=== PATIENT | male | born 1955 | race Caucasian/White ===

== ENCOUNTER 2018-11-03 09:25 | Emergency (ER) | payer OTHER, SELFPAY ==
[2018-11-03 09:25] VITALS: BP 155/73; PULSE 69; RESP 16; TEMP 36.3; O2SAT 99; BMI 24.3
[2018-11-03 10:00] VITALS: BP 143/83; PULSE 63; RESP 17; O2SAT 98
--- NOTE | 2018-11-03 10:01 | ED_ITS ---
HPI - Dizziness General Chief Complaint: Dizziness Stated Complaint: has been dizzy all morning Time Seen by Provider: 11/03/18 09:29 Source: patient Mode of arrival: ambulatory Limitations: no limitations History of Present Illness HPI Narrative: Patient is a 63-year-old male who presents with dizziness. He said he woke up at 5:15 a.m. this morning he felt slightly dizzy he was able to drive himself from billing him to and [place] for an appointment. However he continued to not feel well. He feels a little bit nauseated. No vomiting no focal deficits. He does have a slight headache. No chest pain or heart palpitations. MD complaint: dizziness and lightheadedness Onset (ago): hour(s) Timing: sudden onset Description: sense of movement and lightheadedness Severity: mild Relieving factors: remaining still Exacerbating factors: movement Associated symptoms: denies other symptoms Related Data Previous Rx's Medication Instructions Recorded meclizine 25 mg PO BID-TID PRN #10 tab 11/03/18 ondansetron 4 mg PO Q6-8H PRN #10 tab 11/03/18 Allergies Allergy/AdvReac Type Severity Reaction Status Date / Time oxycodone [OXYCODONE] Allergy Intermediate RASH Verified 11/03/18 10:10 Review of Systems Review of Systems All systems reviewed & are unremarkable except as noted in HPI and below Constitutional Denies chills, Denies fever(s), Denies lethargy and Denies weakness Eyes Denies change in vision, Denies eye discharge, Denies irritation and Denies loss of vision Cardiovascular Denies chest pain, Denies irregular heart rhythm, Denies lightheadedness, Denies palpitations, Denies dyspnea, Denies dyspnea on exertion and Denies orthopnea Respiratory Denies cough, Denies dyspnea, Denies dyspnea on exertion and Denies wheezing Gastrointestinal Gastrointestinal: Denies abdominal pain, Denies change in bowel habits, Denies diarrhea, Reports nausea and Denies vomiting Genitourinary Denies hematuria, Denies flank pain, Denies urinary incontinence and Denies urinary urgency Integumentary/Breasts Denies pruritus, Denies erythema, Denies rash and Denies wounds Neurologic Denies loss of vision and Denies weakness Endocrine Denies palpitations Allergic/Immunologic Denies wheezing PFSH Medical History Ankylosing spondylitis (Chronic) Neck pain (Chronic) Raynauds syndrome (Chronic) Social History Smoking Status: Never smoker Exam Initial Vital Signs Initial Vital Signs: Vital Signs Temperature 97.4 F L 11/03/18 09:25 Pulse Rate 69 11/03/18 09:25 Respiratory Rate 16 11/03/18 09:25 Blood Pressure 155/73 H 11/03/18 09:25 Pulse Oximetry 99 11/03/18 09:25 GENERAL: Alert well-appearing male no acute distress . HEENT: Head atraumatic,EOMI, pupils reactive, face symmetric, moist mucous membranes CARDIOVASCULAR: Regular rate and rhythm without murmurs, rubs or gallops. RESPIRATORY: Breath sounds equal bilaterally, no wheezes rales or rhonchi. ABDOMEN: Soft, nontender. Normoactive bowel sounds all 4 quadrants. No guarding or rebound. EXTREMITIES: Normal range of motion, no clubbing or edema. Neurovascularly intact NEUROLOGICAL: Alert and oriented x4.Normal gait and speech. Cranial nerves II through XII grossly intact. Good [id number], good [id number]-[id number], strength equal bilaterally, no dysarthria or aphasia, sensation in tact to soft touch bilaterally, no visual changes, no facial droop SKIN: Warm, dry, no laceration, no petechiae, no rashes or lesions. Scores NIH Stroke Scale Level of Conciousness: Alert, keenly responsive Ask month/age: Answers both questions correctly. Open/close eyes, close hand: Performs both tasks correctly Best gaze horizontal: Normal Visual shrestha: No visual loss Facial palsy: Normal symetrical movement Left arm drift: No drift for full 10 sec Right arm drift: No drift for full 10 sec Left leg drift: No drift for full 10 sec Right leg drift: No drift for full 10 sec Limb ataxia: Absent Sensory on face/arms/legs: Normal, no sensory loss Best language: No aphasia, normal Dysarthria: Normal Extinction or inattention: No abnormality Total NIH Stroke scale score: 0 Course Orders Ordered: ED Orders 11/03/18 09:39 EKG-12 Lead Routine 11/03/18 09:45 Basic Metabolic Panel Stat Complete Blood Count AUTO DIFF Stat Troponin I Stat Discontinued Medications Sodium Chloride (Normal Saline 0.9%) 1,000 mls @ 1,000 mls/hr IV CONT LOGAN Last Infusion: 11/03/18 13:10 Dose: 0 mls/hr Admin: 11/03/18 10:10 Dose: 1,000 mls/hr Ondansetron HCl (Zofran) 4 mg IV NOW ONE Stop: 11/03/18 09:57 Last Admin: 11/03/18 10:11 Dose: 4 mg Vital Signs - 8 hr 11/03/18 09:25 11/03/18 10:00 11/03/18 11:00 Temperature 97.4 F L Pulse Rate 69 63 60 Respiratory Rate 16 17 11 L Blood Pressure 155/73 H Blood Pressure [Left Arm] 143/83 H 135/79 Pulse Oximetry 99 98 100 11/03/18 12:06 Temperature Pulse Rate 58 L Respiratory Rate 13 Blood Pressure Blood Pressure [Left Arm] 131/75 Pulse Oximetry 100 MDM - Dizziness Lab Data Attestation: I reviewed the patient's lab results. Result diagrams: 11/03/18 09:45 11/03/18 09:45 Lab Results 11/03/18 11/03/18 Range/Units 09:45 09:45 WBC 11.2 H (4.5-11.0) X10^3/uL RBC 4.82 (4.5-5.9) X10^6/uL Hgb 14.6 (13.5-17.5) g/dL Hct 44.7 (41-53) % MCV 92.7 (80-100) fL MCH 30.3 (26-34) PG MCHC 32.6 (30-36) % RDW 14.8 (11.6-14.8) % Plt Count 257 (150-400) X10^3/uL Neut % (Auto) 71.4 (50-75) % Lymph % (Auto) 19.6 L (25-40) % [place] % (Auto) 7.3 (3-14) % Eos % (Auto) 0.8 L (2-4) % Baso % (Auto) 0.9 (0-2) % Neut # (Auto) 8000 H (6964-5200) /uL Sodium 143 (137-145) mmol/L Potassium 4.0 (3.4-5.1) mmol/L Chloride 103 (98-107) mmol/L Carbon Dioxide 28 (22-32) mmol/L BUN 15 (9-20) mg/dL Creatinine 0.80 (0.66-1.25) mg/dL Estimated GFR > 60.0 (>60) mL/min BUN/Creatinine Ratio 18.8 (6-22) Glucose 99 (80-110) mg/dL Calcium 9.2 (8.4-10.2) mg/dL Troponin I < 0.012 (0.01-0.034) ng/mL Urine Dip Bedside Urine Glucose Negative Bedside Urine Bilirubin - Negative Bedside Urine Ketone - Negative Urine Specific [place] 1.015 Bedside Urine Occult Blood - Negative Bedside Urine pH 7.0 Bedside Urine Protein - Negative Bedside Urine Urobilinogen - Negative Bedside Urine Nitrite - Negative Bedside Urine Leukocytes - Negative Esterase ECG Data Attestation: I personally reviewed and interpreted this ECG as follows: Prior ECG tracings: not available for review Interpretation: Normal sinus rhythm rate I have no ST changes no T-wave inversions appear 178 MDM Narrative Medical decision making narrative: Patient was offered meclizine however he does not have a ride yet at this time would like to wait for IV fluids. Ambulated initially still did not feel quite right. He was re-evaluated he said he is mostly better he is not persistently vomiting he is able ambulate to the restroom without difficulty. At this time I do not believe there is stroke. Patient appears comfortable nontoxic he is still able to communicate. At this time he does not want meclizine but is having have a prescription. I discussed all findings with the patient , Education has been performed regarding treatment plan, diagnosis, warning signs and symptoms and all concerns have been addressed. Verbally agree with and understood all of the above. Discharge Plan Departure Patient Disposition: Home Clinical Impression: Benign paroxysmal positional vertigo Discharge Date/Time: 11/03/18 13:12 Interventions: ED Discharge Assessment Last Done: 11/03/18 13:05 Instructions: Benign Paroxysmal Positional Vertigo Activity Restrictions/Additional Instructions: *You have been diagnosed with benign paroxysmal positional vertigo *What to do: This should improve. But may take some time. Get up slowly *Continue to take medications as directed Meclizine 1 tablet 3 times a day if needed for dizziness Zofran 4 mg every 6-8 hours if needed for nausea or vomiting *Follow up with your primary care provider in 2-3 days *Return to ER if you should have persistent worsening dizziness, persistent vomiting, weakness or any new, worsening or concerning symptoms Prescriptions: New meclizine 25 mg tablet 25 mg PO BID-TID PRN (Reason: dizziness) Qty: 10 RF: 0 ondansetron 4 mg tablet,disintegrating 4 mg PO Q6-8H PRN (Reason: nausea and vomiting) Qty: 10 RF: 0
[2018-11-03] MEDS: SODIUM CHLORIDE 0.9% 1,000 ML 1000 ML IV (10:10)
[2018-11-03] MEDS: ONDANSETRON 4 MG/2 ML INJ IV (10:11)
--- NOTE | 2018-11-03 10:11 | PC.NURSE ---
pt deferred meclizine at this time, due to ride home (pt lives in [place]) dr hopper made aware.
--- NOTE | 2018-11-03 10:15 | PC.NURSE ---
pt deferred zofran at this time, states, not nauseas at this time. urine sample requested, urinal provided.
[2018-11-03 10:17] LABS: Add Manual Diff / Slide Review NO; BUN Creatinine Ratio 18.8 (6-22); Basophils Percent Auto 0.9 % (0-2); Blood Urea Nitrogen 15 mg/dL (9-20); Calcium 9.2 mg/dL (8.4-10.2); Carbon Dioxide 28 mmol/L (22-32); Chloride 103 mmol/L (98-107); Eosinophils Percent Auto 0.8 % (2-4); Estimated Glomerular Filt Rate > 60.0 mL/min (>60); Glucose 99 mg/dL (80-110); HEMOLYSIS 19 (0-50); Hematocrit 44.7 % (41-53); Hemoglobin 14.6 g/dL (13.5-17.5); Lymphocytes Percent Auto 19.6 % (25-40); Mean Corpuscular HGB Conc 32.6 % (30-36); Mean Corpuscular Hemoglobin 30.3 PG (26-34); Mean Corpuscular Volume 92.7 fL (80-100); Monocytes Percent Auto 7.3 % (3-14); Neutrophils Absolute Auto 8000 /uL (3000-5900); Neutrophils Percent Auto 71.4 % (50-75); Platelet Count 257 X10^3/uL (150-400); Red Blood Cell Count 4.82 X10^6/uL (4.5-5.9); Red Cell Distribution Width 14.8 % (11.6-14.8); Sodium 143 mmol/L (137-145); White Blood Cell Count 11.2 X10^3/uL (4.5-11.0)
[2018-11-03 10:29] LABS: Troponin I < 0.012 ng/mL (0.01-0.034)
[2018-11-03 10:30] VITALS: BP 138/78; PULSE 61; RESP 16; O2SAT 98
[2018-11-03 11:00] VITALS: BP 135/79; PULSE 60; RESP 11; O2SAT 100
--- NOTE | 2018-11-03 11:32 | PC.NURSE ---
pt able to get self out of bed and stand, reports, feeling lightheaded and with dizziness, same sxs but not as bad. denies chest pain, shortness of breath,nausea. skin warm dry pink, dr hopper made aware. right IV site , leaking changed of dressing, flushed without difficulty. continue infusing iv fluids.
--- NOTE | 2018-11-03 11:33 | PC.NURSE ---
pt able to get out of bed and stand, developed lightheadedness and dizziness, able to ambulate without difficulty, denies chest pain or shortness of breath. skin warm dry pink dr hopper made aware. spouse will be calling back, if she can give pt ride home. dr hopper made aware. pt inquiring abaut maneuver, dr hopper made aware , no new orders at this time. iv site leaking, checked and redressed, flush without difficulty, continue infusing ns.
[2018-11-03 12:06] VITALS: BP 131/75; PULSE 58; RESP 13; O2SAT 100
--- NOTE | 2018-11-03 12:24 | PC.NURSE ---
pt states, is on the way, pt continue to deferred meclizine at this time, pt agreed to have rx to take later if he decided.
== END 2018-11-03 13:12 | disposition home or self-care (01) ==
PROVIDERS: Emergency Provider Emergency Medicine
DX: H81.10 Benign paroxysmal vertigo, unspecified ear (principal)
CPT/HCPCS: 36591; 80048; 81003; 84484; 85025; 93005; 93010; 96361; 96374; 99283; 99284; J2405

== ENCOUNTER 2018-11-08 16:00 | Outpatient (RCR) | payer OTHER, SELFPAY ==
--- NOTE | 2018-09-02 08:56 | PT.OIE ---
Current Diagnoses Other specified postprocedural states (09/01/18) Provider Visit Care Team Role Provider Type Faheem Dotson MD Attending Provider Non-Staff Specialty: Orthopedics Address: [facility] [address] [address], [place], [address] Email: Physical Therapy Initial Evaluation PT-OP-A Visit Information Start: 09/02/18 07:25 Freq: Status: Active Protocol: Document 09/01/18 18:29 ML (Rec: 09/02/18 08:03 ML [id number]) Out-Patient Physical Therapy Visit Information Visit Information Visit Type Initial Evaluation Visit Start Time 16:00 Visit Stop Time 16:53 Total Visit Minutes 53 Visit Number 1 Number of VISCOSE DEPARTMENT WORKER Visits 0 Evaluation Information Evaluation Date 09/01/18 PT-OP-B Current Condition Start: 09/02/18 07:25 Freq: Status: Active Protocol: Document 09/01/18 18:29 ML (Rec: 09/02/18 08:03 ML [id number]) Current Condition History of Current Condition Onset Date 04/01/18 Current Complaints Dec ROM and strength status post rotator cuff repair History of Current Condition Pt has been recoverying well from his rotator cuff repair but wants to continue to have PT 2x/week in order to regain full ROM and strength. Pt has been going to PT in [place] 2x/week since the surgery 4 months ago, but is now pursuing PT here once a week as he is only able to make his appointment in [place] once a week. 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 Pt also presents with ankylosing spondylitis and states that doctors mentioned that it could have been related to his tear. Pt reports of having no difficulty of work activities, general ADLs, or recreational activities. He states that because of his ROM he is unable to wash his back and would like to improve ROM for general function. Pt says he has done some kayaking and would like to continue to do so. Pt stated no other particular activities or difficulties that finds limitations in because of his current condition of his shoulder. Prior Treatments and Tests PT in [place] Future Testing and Treatments Planned possible MRI for neck if hand sx don't resolve Treatment Goals Patient/Caregiver Goals increase ROM to be able to wash his back and increase strength in order to lift as needed and continue to be able to kayak without further limitations with his shoulder PT-OP-C Subjective Start: 09/02/18 07:25 Freq: Status: Active Protocol: Document 09/01/18 18:29 ML (Rec: 09/02/18 08:03 ML [id number]) Patient Questionnaires Quick Dash- Upper Extremity Quick Dash UE Score 43.18 Quick Dash UE Impairment 40 to 59% Impaired (Score 40- 59) OP-PT Pain Assessment Location R hand Pain Location Details in center of palm Description- Other hands can also turn white and dec ticket clerk strength Frequency Intermittent Pain Aggravating Factors Position Head Pain Location Details headaches Description- Other hands often turn white when neck pain presents and ticket clerk strength diminished Frequency Occasional Radiating Location hand (palm) Pain Aggravating Factors Position Other Pain Aggravating Factors wakes at night when sleeping on back with head propped up on pillows Pain Alleviating Factors Position Other Pain Alleviating Factors less flexed position (side lying) shoulder Pain Location Details anterior shoulder near GH and AC joint and posterior near GH joint Intensity 3 Scale Used Numeric (1 - 10) Other Pain Aggravating Factors only at end ROM Other Pain Alleviating Factors avoiding end ROM low back Pain Location Details bilateral, where fused from ankylosing spondylitis Intensity 3 Scale Used Numeric (1 - 10) PT-OP-F Manual Assessment Start: 09/02/18 07:25 Freq: Status: Active Protocol: Document 09/01/18 18:29 ML (Rec: 09/02/18 08:03 ML [id number]) Manual Assessments Soft Tissue Assessment Soft Tissue Mobility Assessment cervical paraspinal tenderness and tightness, scalene tightness, pec tightness all bilaterally Joint Mobility Assessment Joint Mobility Assessment posterior capsular restriction , first rib elevated PT-OP-J Posture/Palpation/Skin Start: 09/02/18 07:25 Freq: Status: Active Protocol: Document 09/01/18 18:29 ML (Rec: 09/02/18 08:54 ML [email or web address]) Posture Evaluation Position Standing Evaluation View Lateral Head/C-Spine Posture Forward Head T-Spine Posture Increased Kyphosis Shoulder Posture (L) Rounded (R) Rounded (L) Forward (R) Forward Hip Posture (L) Flexed (R) Flexed Knee Posture (L) Excess Flexion (R) Excess Flexion PT-OP-K Range of Motion Start: 09/02/18 07:25 Freq: Status: Active Protocol: Document 09/01/18 18:29 ML (Rec: 09/02/18 08:54 ML [email or web address]) Shoulder Goniometric Range of Motion Shoulder Measured in Degrees Right Passive Testing Position Supine Flexion 130 Abduction 125 External Rotation at 90 degrees 76 Abduction Internal Rotation 26 Left Active Shoulder ROM WFL Yes Testing Position Sitting Flexion 132 Abduction 180 External Rotation at 90 degrees 90 Abduction External Rotation at 0 degrees Abduction 67 Internal Rotation Behind Back (text) T7 Right Active Shoulder ROM WFL No Testing Position Sitting Flexion 116 Extension 63 Abduction 124 External Rotation at 90 degrees 78 Abduction External Rotation at 0 degrees Abduction 58 Internal Rotation 5 Internal Rotation Behind Back (text) L1 PT-OP-M Strength Start: 09/02/18 07:25 Freq: Status: Active Protocol: Document 09/01/18 18:29 ML (Rec: 09/02/18 08:54 ML [email or web address]) Shoulder Strength Shoulder Manual Muscle Testing Left Flexion 5 Normal Abduction (C5) 5 Normal External Rotation 5 Normal Internal Rotation 4 Good Right Flexion 4- Good- Abduction (C5) 4 Good External Rotation 5 Normal Internal Rotation 4- Good- PT-OP-T Assessment and Plan Start: 09/02/18 07:25 Freq: Status: Active Protocol: Document 09/01/18 18:29 ML (Rec: 09/02/18 08:54 ML [email or web address]) Physical Therapy Assessment Rehab Potential Rehabilitation Potential Excellent Evaluation Complexity Number of Personal Factors/Comorbidities 3 or More Number of Body Systems Impaired 4 or More Clinical Presentation at Evaluation Stable Impairments Impairments Functional Activities Pain Posture ROM Soft Tissue Mobility Strength Goals 3 Impairment neck pain/headaches Short Term Goal (STG) Pt will demonstrate appropriate sleeping position and report that he is no longer waking at night due to headaches. STG Duration 10/02/18 2 Impairment dec strength Short Term Goal (STG) Pt demonstrates independence with HEP. STG Duration 10/02/18 Senior Living Goal (LTG) Pt will improve strength to 5/ 5 with all motions in order to be able to lift as needed. LTG Duration 11/01/18 1 Impairment dec ROM Short Term Goal (STG) Pt will be able to achieve 15 degrees IR AROM in order to improve his ability to wash his back. STG Duration 10/02/18 Vice President Diversity Goal (LTG) Pt will report greater ease with being able to use his hand to wash his back. LTG Duration 11/01/18 Assessment Summary Assessment Pt reports for continued PT post rotator cuff repair. Pt has been getting PT 2x/week and would like to continue. Pt presents with dec ROM and strength and would like to improve both of those things to increase his ability to do functional activities such has washing his back and lifting. Pt also presents with neck pain that creates headaches at night when he sleeps on his back with his head propped. He also reports his R hand turning white and his ticket clerk dec as well when he has neck pain . Pt has been independent with previous HEP from other PT. Physical Therapy Plan Frequency and Duration Frequency of Treatment 2x/Week Plan of Care Start Date 09/01/18 Plan of Care End Date 11/01/18 Therapeutic Interventions Therapeutic Interventions Aquatic Therapy Home Exercise Program Joint Mobilizations Manual Therapy Neuromuscular Re-education Soft Tissue Mobilization Taping Therapeutic Activities Therapeutic Exercises Modalities Cold Pack/Ice Massage Electric Stimulation Hot Packs Iontophoresis Ultrasound Next Visit Focus/Plan Next Note Type Treatment Note Next Visit Plan go over exercises/HEP that he was doing with previous PT, adjust/create HEP, soft tissue prn
--- NOTE | 2018-09-02 08:59 | PT.OPPOC ---
Current Diagnoses Other specified postprocedural states (09/01/18) Provider Visit Care Team Role Provider Type Faheem Dotson MD Attending Provider Non-Staff Specialty: Orthopedics Address: [facility] Lalitha Nunez [address], [address] Email: Plan Of Care PT-OP-T Assessment and Plan Start: 09/02/18 07:25 Freq: Status: Active Protocol: Document 09/01/18 18:29 ML (Rec: 09/02/18 08:54 ML [email or web address]) Physical Therapy Assessment Rehab Potential Rehabilitation Potential Excellent Evaluation Complexity Number of Personal Factors/Comorbidities 3 or More Number of Body Systems Impaired 4 or More Clinical Presentation at Evaluation Stable Impairments Impairments Functional Activities Pain Posture ROM Soft Tissue Mobility Strength Goals 3 Impairment neck pain/headaches Short Term Goal (STG) Pt will demonstrate appropriate sleeping position and report that he is no longer waking at night due to headaches. STG Duration 10/02/18 2 Impairment dec strength Short Term Goal (STG) Pt demonstrates independence with HEP. STG Duration 10/02/18 Penitentiary Goal (LTG) Pt will improve strength to 5/ 5 with all motions in order to be able to lift as needed. LTG Duration 11/01/18 1 Impairment dec ROM Short Term Goal (STG) Pt will be able to achieve 15 degrees IR AROM in order to improve his ability to wash his back. STG Duration 10/02/18 Beef Grader Goal (LTG) Pt will report greater ease with being able to use his hand to wash his back. LTG Duration 11/01/18 Assessment Summary Assessment Pt reports for continued PT post rotator cuff repair. Pt has been getting PT 2x/week and would like to continue. Pt presents with dec ROM and strength and would like to improve both of those things to increase his ability to do functional activities such has washing his back and lifting. Pt also presents with neck pain that creates headaches at night when he sleeps on his back with his head propped. He also reports his R hand turning white and his retail pharmacist dec as well when he has neck pain . Pt has been independent with previous HEP from other PT. Physical Therapy Plan Frequency and Duration Frequency of Treatment 2x/Week Plan of Care Start Date 09/01/18 Plan of Care End Date 11/01/18 Therapeutic Interventions Therapeutic Interventions Aquatic Therapy Home Exercise Program Joint Mobilizations Manual Therapy Neuromuscular Re-education Soft Tissue Mobilization Taping Therapeutic Activities Therapeutic Exercises Modalities Cold Pack/Ice Massage Electric Stimulation Hot Packs Iontophoresis Ultrasound Next Visit Focus/Plan Next Note Type Treatment Note Next Visit Plan go over exercises/HEP that he was doing with previous PT, adjust/create HEP, soft tissue prn Plan of Care Dates Plan of Care Start Date 09/01/18 Plan of Care End Date 11/01/18 Please Sign and Return: I have reviewed this Plan of Care and certify that the skilled therapy services above are required to meet the patient?s needs. Physician Signature Date Printed Name and Credentials Clinical Instructor Signature Printed Name and Credentials
--- NOTE | 2018-09-06 17:33 | PT.OTN ---
Current Diagnoses Other specified postprocedural states (09/06/18) Physical Therapy Treatment Note PT-OP-A Visit Information Start: 09/02/18 07:25 Freq: Status: Active Protocol: Document 09/06/18 17:23 [facility] (Rec: 09/06/18 17:32 [facility] [email or web address]) Out-Patient Physical Therapy Visit Information Visit Information Visit Type Treatment Note Visit Note 30 visits per calender year Visit Start Time 16:05 Visit Stop Time 16:55 Total Visit Minutes 50 Visit Number 2 PT-OP-B Current Condition Start: 09/02/18 07:25 Freq: Status: Active Protocol: Document 09/01/18 18:29 ML (Rec: 09/02/18 08:03 ML [id number]) Current Condition History of Current Condition Onset Date 04/01/18 Current Complaints Dec ROM and strength status post rotator cuff repair History of Current Condition Pt has been recoverying well from his rotator cuff repair but wants to continue to have PT 2x/week in order to regain full ROM and strength. Pt has been going to PT in [place] 2x/week since the surgery 4 months ago, but is now pursuing PT here once a week as he is only able to make his appointment in [place] once a week. 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 Pt also presents with ankylosing spondylitis and states that doctors mentioned that it could have been related to his tear. Pt reports of having no difficulty of work activities, general ADLs, or recreational activities. He states that because of his ROM he is unable to wash his back and would like to improve ROM for general function. Pt says he has done some kayaking and would like to continue to do so. Pt stated no other particular activities or difficulties that finds limitations in because of his current condition of his shoulder. Prior Treatments and Tests PT in [place] Future Testing and Treatments Planned possible MRI for neck if hand sx don't resolve Treatment Goals Patient/Caregiver Goals increase ROM to be able to wash his back and increase strength in order to lift as needed and continue to be able to kayak without further limitations with his shoulder PT-OP-C Subjective Start: 09/02/18 07:25 Freq: Status: Active Protocol: Document 09/06/18 17:23 [facility] (Rec: 09/06/18 17:32 [facility] [email or web address]) OP-PT Subjective Patient Comments Patient Comments Pt reports compliance with HEP PT-OP-F Manual Assessment Start: 09/02/18 07:25 Freq: Status: Active Protocol: Document 09/01/18 18:29 ML (Rec: 09/02/18 08:03 ML [id number]) Manual Assessments Soft Tissue Assessment Soft Tissue Mobility Assessment cervical paraspinal tenderness and tightness, scalene tightness, pec tightness all bilaterally Joint Mobility Assessment Joint Mobility Assessment posterior capsular restriction , first rib elevated PT-OP-J Posture/Palpation/Skin Start: 09/02/18 07:25 Freq: Status: Active Protocol: Document 09/01/18 18:29 ML (Rec: 09/02/18 08:54 ML [email or web address]) Posture Evaluation Position Standing Evaluation View Lateral Head/C-Spine Posture Forward Head T-Spine Posture Increased Kyphosis Shoulder Posture (L) Rounded (R) Rounded (L) Forward (R) Forward Hip Posture (L) Flexed (R) Flexed Knee Posture (L) Excess Flexion (R) Excess Flexion PT-OP-K Range of Motion Start: 09/02/18 07:25 Freq: Status: Active Protocol: Document 09/01/18 18:29 ML (Rec: 09/02/18 08:54 ML [email or web address]) Shoulder Goniometric Range of Motion Shoulder Measured in Degrees Right Passive Testing Position Supine Flexion 130 Abduction 125 External Rotation at 90 degrees 76 Abduction Internal Rotation 26 Left Active Shoulder ROM WFL Yes Testing Position Sitting Flexion 132 Abduction 180 External Rotation at 90 degrees 90 Abduction External Rotation at 0 degrees Abduction 67 Internal Rotation Behind Back (text) T7 Right Active Shoulder ROM WFL No Testing Position Sitting Flexion 116 Extension 63 Abduction 124 External Rotation at 90 degrees 78 Abduction External Rotation at 0 degrees Abduction 58 Internal Rotation 5 Internal Rotation Behind Back (text) L1 PT-OP-M Strength Start: 09/02/18 07:25 Freq: Status: Active Protocol: Document 09/01/18 18:29 ML (Rec: 09/02/18 08:54 ML [email or web address]) Shoulder Strength Shoulder Manual Muscle Testing Left Flexion 5 Normal Abduction (C5) 5 Normal External Rotation 5 Normal Internal Rotation 4 Good Right Flexion 4- Good- Abduction (C5) 4 Good External Rotation 5 Normal Internal Rotation 4- Good- PT-OP-Q Treatments Start: 09/02/18 07:25 Freq: Status: Active Protocol: Document 09/06/18 17:23 [facility] (Rec: 09/06/18 17:32 [facility] [email or web address]) Therapeutic Exercises Standing Exercises 1 Standing Exercise Name Shoulder IR stretch Manual Therapy Treatment Soft Tissue Mobilization 1 Body Location Ant chest/pecs Mobilization Type Myofascial Release Rolling Intensity/Depth Moderate Joint Mobilizations 1 Joint GH Direction post translation, distraction & gapping Comments w/neuro re edu in ranges Self-Care/Home Management Treatment Activities Self-Care/Home Management Activities postural importance PT-OP-T Assessment and Plan Start: 09/02/18 07:25 Freq: Status: Active Protocol: Document 09/06/18 17:23 [facility] (Rec: 09/06/18 17:32 [facility] [email or web address]) Physical Therapy Assessment Goals 3 Impairment neck pain/headaches Short Term Goal (STG) Pt will demonstrate appropriate sleeping position and report that he is no longer waking at night due to headaches. STG Duration 10/02/18 2 Impairment dec strength Short Term Goal (STG) Pt demonstrates independence with HEP. STG Duration 10/02/18 [facility] Goal (LTG) Pt will improve strength to 5/ 5 with all motions in order to be able to lift as needed. LTG Duration 11/01/18 1 Impairment dec ROM Short Term Goal (STG) Pt will be able to achieve 15 degrees IR AROM in order to improve his ability to wash his back. STG Duration 10/02/18 Portfolio Architect Goal (LTG) Pt will report greater ease with being able to use his hand to wash his back. LTG Duration 11/01/18 Assessment Summary Assessment pt had significant improvement in abd & IR with GH mobilizations. He has significant ant shoulder fascial tightness that improved with soft tissue & joint mobilization work. Required cueing for quadruped exercise for scapular stability Physical Therapy Plan Frequency and Duration Frequency of Treatment 2x/Week Plan of Care Start Date 09/01/18 Plan of Care End Date 11/01/18 Next Visit Focus/Plan Next Note Type Treatment Note Next Visit Plan Cont to work on GH mobility; quadruped Habd with wt, progress to scaption also
--- NOTE | 2018-09-20 18:11 | PT.OTN ---
Current Diagnoses Other specified postprocedural states (09/20/18) Physical Therapy Treatment Note PT-OP-A Visit Information Start: 09/02/18 07:25 Freq: Status: Active Protocol: Document 09/20/18 17:47 LR (Rec: 09/20/18 18:11 [facility] [email or web address]) Out-Patient Physical Therapy Visit Information Visit Information Visit Type Treatment Note Visit Start Time 16:50 Visit Stop Time 15:40 Total Visit Minutes 50 Visit Number 3 PT-OP-B Current Condition Start: 09/02/18 07:25 Freq: Status: Active Protocol: Document 09/01/18 18:29 ML (Rec: 09/02/18 08:03 ML [id number]) Current Condition History of Current Condition Onset Date 04/01/18 Current Complaints Dec ROM and strength status post rotator cuff repair History of Current Condition Pt has been recoverying well from his rotator cuff repair but wants to continue to have PT 2x/week in order to regain full ROM and strength. Pt has been going to PT in [place] 2x/week since the surgery 4 months ago, but is now pursuing PT here once a week as he is only able to make his appointment in [place] once a week. 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 Pt also presents with ankylosing spondylitis and states that doctors mentioned that it could have been related to his tear. Pt reports of having no difficulty of work activities, general ADLs, or recreational activities. He states that because of his ROM he is unable to wash his back and would like to improve ROM for general function. Pt says he has done some kayaking and would like to continue to do so. Pt stated no other particular activities or difficulties that finds limitations in because of his current condition of his shoulder. Prior Treatments and Tests PT in [place] Future Testing and Treatments Planned possible MRI for neck if hand sx don't resolve Treatment Goals Patient/Caregiver Goals increase ROM to be able to wash his back and increase strength in order to lift as needed and continue to be able to kayak without further limitations with his shoulder PT-OP-C Subjective Start: 09/02/18 07:25 Freq: Status: Active Protocol: Document 09/20/18 17:47 [facility] (Rec: 09/20/18 18:11 [facility] [email or web address]) OP-PT Subjective Patient Comments Patient Comments Reports he feels like his range has been improving. He has only done PT 1x/week past couple weeks d/t scheduling conflicts. PT-OP-F Manual Assessment Start: 09/02/18 07:25 Freq: Status: Active Protocol: Document 09/01/18 18:29 ML (Rec: 09/02/18 08:03 ML [id number]) Manual Assessments Soft Tissue Assessment Soft Tissue Mobility Assessment cervical paraspinal tenderness and tightness, scalene tightness, pec tightness all bilaterally Joint Mobility Assessment Joint Mobility Assessment posterior capsular restriction , first rib elevated PT-OP-J Posture/Palpation/Skin Start: 09/02/18 07:25 Freq: Status: Active Protocol: Document 09/01/18 18:29 ML (Rec: 09/02/18 08:54 ML [email or web address]) Posture Evaluation Position Standing Evaluation View Lateral Head/C-Spine Posture Forward Head T-Spine Posture Increased Kyphosis Shoulder Posture (L) Rounded (R) Rounded (L) Forward (R) Forward Hip Posture (L) Flexed (R) Flexed Knee Posture (L) Excess Flexion (R) Excess Flexion PT-OP-K Range of Motion Start: 09/02/18 07:25 Freq: Status: Active Protocol: Document 09/01/18 18:29 ML (Rec: 09/02/18 08:54 ML [email or web address]) Shoulder Goniometric Range of Motion Shoulder Measured in Degrees Right Passive Testing Position Supine Flexion 130 Abduction 125 External Rotation at 90 degrees 76 Abduction Internal Rotation 26 Left Active Shoulder ROM WFL Yes Testing Position Sitting Flexion 132 Abduction 180 External Rotation at 90 degrees 90 Abduction External Rotation at 0 degrees Abduction 67 Internal Rotation Behind Back (text) T7 Right Active Shoulder ROM WFL No Testing Position Sitting Flexion 116 Extension 63 Abduction 124 External Rotation at 90 degrees 78 Abduction External Rotation at 0 degrees Abduction 58 Internal Rotation 5 Internal Rotation Behind Back (text) L1 PT-OP-M Strength Start: 09/02/18 07:25 Freq: Status: Active Protocol: Document 09/01/18 18:29 ML (Rec: 09/02/18 08:54 ML [email or web address]) Shoulder Strength Shoulder Manual Muscle Testing Left Flexion 5 Normal Abduction (C5) 5 Normal External Rotation 5 Normal Internal Rotation 4 Good Right Flexion 4- Good- Abduction (C5) 4 Good External Rotation 5 Normal Internal Rotation 4- Good- PT-OP-Q Treatments Start: 09/02/18 07:25 Freq: Status: Active Protocol: Document 09/20/18 17:47 [facility] (Rec: 09/20/18 18:11 [facility] [email or web address]) Therapeutic Exercises Supine Exercises D2 bar Supine Exercise Name D2 flex & ext Resistance manual 1 Supine Exercise Name D2 flex Resistance L1 Reps/Minutes 5 sec holds x10 Manual Therapy Treatment Soft Tissue Mobilization 2 Body Location lats & along R torso Mobilization Type Myofascial Release Intensity/Depth Superficial Comments plunger FM w/ overhead reach 1 Body Location Ant chest/pecs Mobilization Type Myofascial Release Rolling Intensity/Depth Moderate Joint Mobilizations 1 Joint GH Direction post translation & glide, lat glide, distraction & gapping Comments w/neuro re edu in ranges PT-OP-T Assessment and Plan Start: 09/02/18 07:25 Freq: Status: Active Protocol: Document 09/20/18 17:47 [facility] (Rec: 09/20/18 18:11 [facility] [email or web address]) Physical Therapy Assessment Goals 3 Impairment neck pain/headaches Short Term Goal (STG) Pt will demonstrate appropriate sleeping position and report that he is no longer waking at night due to headaches. STG Duration 10/02/18 2 Impairment dec strength Short Term Goal (STG) Pt demonstrates independence with HEP. STG Duration 10/02/18 [facility] Goal (LTG) Pt will improve strength to 5/ 5 with all motions in order to be able to lift as needed. LTG Duration 11/01/18 1 Impairment dec ROM Short Term Goal (STG) Pt will be able to achieve 15 degrees IR AROM in order to improve his ability to wash his back. STG Duration 10/02/18 [employer] Lead Goal (LTG) Pt will report greater ease with being able to use his hand to wash his back. LTG Duration 11/01/18 Assessment Summary Assessment Pt cont to improve with ROM with manual rx. He has restriction in strength in end range flex which was challenged with his D2 PNF pattern. Physical Therapy Plan Frequency and Duration Frequency of Treatment 2x/Week Plan of Care Start Date 09/01/18 Plan of Care End Date 11/01/18 Next Visit Focus/Plan Next Note Type Treatment Note Next Visit Plan quadruped Habd with wt, progress to scaption also & work in prone prop position for scap stability
--- NOTE | 2018-10-04 18:01 | PT.OTN ---
Current Diagnoses Other specified postprocedural states (10/04/18) Physical Therapy Treatment Note PT-OP-A Visit Information Start: 09/02/18 07:25 Freq: Status: Active Protocol: Document 10/04/18 17:54 [facility] (Rec: 10/04/18 18:00 [facility] [email or web address]) Out-Patient Physical Therapy Visit Information Visit Information Visit Type Treatment Note Visit Note 30 visits per calender year ( sharing w/another clinic) Visit Start Time 16:45 Visit Stop Time 15:40 Total Visit Minutes 55 Visit Number 4 PT-OP-B Current Condition Start: 09/02/18 07:25 Freq: Status: Active Protocol: Document 09/01/18 18:29 ML (Rec: 09/02/18 08:03 ML [id number]) Current Condition History of Current Condition Onset Date 04/01/18 Current Complaints Dec ROM and strength status post rotator cuff repair History of Current Condition Pt has been recoverying well from his rotator cuff repair but wants to continue to have PT 2x/week in order to regain full ROM and strength. Pt has been going to PT in [place] 2x/week since the surgery 4 months ago, but is now pursuing PT here once a week as he is only able to make his appointment in [place] once a week. 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 Pt also presents with ankylosing spondylitis and states that doctors mentioned that it could have been related to his tear. Pt reports of having no difficulty of work activities, general ADLs, or recreational activities. He states that because of his ROM he is unable to wash his back and would like to improve ROM for general function. Pt says he has done some kayaking and would like to continue to do so. Pt stated no other particular activities or difficulties that finds limitations in because of his current condition of his shoulder. Prior Treatments and Tests PT in [place] Future Testing and Treatments Planned possible MRI for neck if hand sx don't resolve Treatment Goals Patient/Caregiver Goals increase ROM to be able to wash his back and increase strength in order to lift as needed and continue to be able to kayak without further limitations with his shoulder PT-OP-C Subjective Start: 09/02/18 07:25 Freq: Status: Active Protocol: Document 10/04/18 17:54 [facility] (Rec: 10/04/18 18:00 [facility] [email or web address]) OP-PT Subjective Patient Comments Patient Comments Pt reports he feels like his ROM is coming along except for his ER at his side. PT-OP-F Manual Assessment Start: 09/02/18 07:25 Freq: Status: Active Protocol: Document 09/01/18 18:29 ML (Rec: 09/02/18 08:03 ML [id number]) Manual Assessments Soft Tissue Assessment Soft Tissue Mobility Assessment cervical paraspinal tenderness and tightness, scalene tightness, pec tightness all bilaterally Joint Mobility Assessment Joint Mobility Assessment posterior capsular restriction , first rib elevated PT-OP-J Posture/Palpation/Skin Start: 09/02/18 07:25 Freq: Status: Active Protocol: Document 09/01/18 18:29 ML (Rec: 09/02/18 08:54 ML [email or web address]) Posture Evaluation Position Standing Evaluation View Lateral Head/C-Spine Posture Forward Head T-Spine Posture Increased Kyphosis Shoulder Posture (L) Rounded (R) Rounded (L) Forward (R) Forward Hip Posture (L) Flexed (R) Flexed Knee Posture (L) Excess Flexion (R) Excess Flexion PT-OP-K Range of Motion Start: 09/02/18 07:25 Freq: Status: Active Protocol: Document 09/01/18 18:29 ML (Rec: 09/02/18 08:54 ML [email or web address]) Shoulder Goniometric Range of Motion Shoulder Measured in Degrees Right Passive Testing Position Supine Flexion 130 Abduction 125 External Rotation at 90 degrees 76 Abduction Internal Rotation 26 Left Active Shoulder ROM WFL Yes Testing Position Sitting Flexion 132 Abduction 180 External Rotation at 90 degrees 90 Abduction External Rotation at 0 degrees Abduction 67 Internal Rotation Behind Back (text) T7 Right Active Shoulder ROM WFL No Testing Position Sitting Flexion 116 Extension 63 Abduction 124 External Rotation at 90 degrees 78 Abduction External Rotation at 0 degrees Abduction 58 Internal Rotation 5 Internal Rotation Behind Back (text) L1 PT-OP-M Strength Start: 09/02/18 07:25 Freq: Status: Active Protocol: Document 09/01/18 18:29 ML (Rec: 09/02/18 08:54 ML [email or web address]) Shoulder Strength Shoulder Manual Muscle Testing Left Flexion 5 Normal Abduction (C5) 5 Normal External Rotation 5 Normal Internal Rotation 4 Good Right Flexion 4- Good- Abduction (C5) 4 Good External Rotation 5 Normal Internal Rotation 4- Good- PT-OP-Q Treatments Start: 09/02/18 07:25 Freq: Status: Active Protocol: Document 10/04/18 17:54 [facility] (Rec: 10/04/18 18:00 [facility] [email or web address]) Therapeutic Exercises Supine Exercises ER at side Reps/Minutes 10 Comments towel between elbow and side Standing Exercises ER in corner/door Standing Exercise Name at sides Reps/Minutes 30 sec Comments towel between elbow and side Manual Therapy Treatment Soft Tissue Mobilization 1 Body Location Ant chest/pecs Mobilization Type Myofascial Release Rolling Intensity/Depth Moderate Joint Mobilizations AC Joint clavicle Direction ant FM w/shugging progressed to ER 1 Joint GH Direction post translation PT-OP-R Modalities Start: 10/04/18 18:00 Freq: Status: Active Protocol: Document 10/04/18 17:44 [facility] (Rec: 10/04/18 18:01 [facility] [email or web address]) Hot Pack/Cold Pack Treatment Cold Pack Location R shoulder Patient Position Sidelying Treatment Duration (minutes) 10 PT-OP-T Assessment and Plan Start: 09/02/18 07:25 Freq: Status: Active Protocol: Document 10/04/18 17:54 [facility] (Rec: 10/04/18 18:00 [facility] [email or web address]) Physical Therapy Assessment Goals 3 Impairment neck pain/headaches Short Term Goal (STG) Pt will demonstrate appropriate sleeping position and report that he is no longer waking at night due to headaches. STG Duration 10/02/18 2 Impairment dec strength Short Term Goal (STG) Pt demonstrates independence with HEP. STG Duration 10/02/18 Sk[facility] Nursing Goal (LTG) Pt will improve strength to 5/ 5 with all motions in order to be able to lift as needed. LTG Duration 11/01/18 1 Impairment dec ROM Short Term Goal (STG) Pt will be able to achieve 15 degrees IR AROM in order to improve his ability to wash his back. STG Duration 10/02/18 Scrap Preparer Goal (LTG) Pt will report greater ease with being able to use his hand to wash his back. LTG Duration 11/01/18 Assessment Summary Assessment Improved GH position with treatment and improved ER at side form 50 deg to 66 after manual therapy with dec soreness w/ROM. Pt did experience soreness after session so did ice after rx. Physical Therapy Plan Frequency and Duration Frequency of Treatment 2x/Week Plan of Care Start Date 09/01/18 Plan of Care End Date 11/01/18 Next Visit Focus/Plan Next Note Type Treatment Note Next Visit Plan quadruped Habd with wt, progress to scaption also & work in prone prop position for scap stability
--- NOTE | 2018-10-18 18:08 | PT.OTN ---
Current Diagnoses Other specified postprocedural states (10/18/18) Physical Therapy Treatment Note PT-OP-A Visit Information Start: 09/02/18 07:25 Freq: Status: Active Protocol: Document 10/18/18 18:01 [facility] (Rec: 10/18/18 18:05 [facility] [email or web address]) Out-Patient Physical Therapy Visit Information Visit Information Visit Type Treatment Note Visit Note 30 visits per calender year ( sharing w/another clinic) Visit Start Time 16:10 Visit Stop Time 16:48 Total Visit Minutes 38 Visit Number 5 PT-OP-B Current Condition Start: 09/02/18 07:25 Freq: Status: Active Protocol: Document 09/01/18 18:29 ML (Rec: 09/02/18 08:03 ML [id number]) Current Condition History of Current Condition Onset Date 04/01/18 Current Complaints Dec ROM and strength status post rotator cuff repair History of Current Condition Pt has been recoverying well from his rotator cuff repair but wants to continue to have PT 2x/week in order to regain full ROM and strength. Pt has been going to PT in [place] 2x/week since the surgery 4 months ago, but is now pursuing PT here once a week as he is only able to make his appointment in [place] once a week. 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 Pt also presents with ankylosing spondylitis and states that doctors mentioned that it could have been related to his tear. Pt reports of having no difficulty of work activities, general ADLs, or recreational activities. He states that because of his ROM he is unable to wash his back and would like to improve ROM for general function. Pt says he has done some kayaking and would like to continue to do so. Pt stated no other particular activities or difficulties that finds limitations in because of his current condition of his shoulder. Prior Treatments and Tests PT in [place] Future Testing and Treatments Planned possible MRI for neck if hand sx don't resolve Treatment Goals Patient/Caregiver Goals increase ROM to be able to wash his back and increase strength in order to lift as needed and continue to be able to kayak without further limitations with his shoulder PT-OP-C Subjective Start: 09/02/18 07:25 Freq: Status: Active Protocol: Document 10/18/18 18:01 [facility] (Rec: 10/18/18 18:05 [facility] [email or web address]) OP-PT Subjective Patient Comments Patient Comments Pt reports ROM is getting closer to equal. Reports he has made an appt in Oct to see Rheumatoligist to cont PT for after PT for shoulder is complete. PT-OP-F Manual Assessment Start: 09/02/18 07:25 Freq: Status: Active Protocol: Document 09/01/18 18:29 ML (Rec: 09/02/18 08:03 ML [id number]) Manual Assessments Soft Tissue Assessment Soft Tissue Mobility Assessment cervical paraspinal tenderness and tightness, scalene tightness, pec tightness all bilaterally Joint Mobility Assessment Joint Mobility Assessment posterior capsular restriction , first rib elevated PT-OP-J Posture/Palpation/Skin Start: 09/02/18 07:25 Freq: Status: Active Protocol: Document 09/01/18 18:29 ML (Rec: 09/02/18 08:54 ML [email or web address]) Posture Evaluation Position Standing Evaluation View Lateral Head/C-Spine Posture Forward Head T-Spine Posture Increased Kyphosis Shoulder Posture (L) Rounded (R) Rounded (L) Forward (R) Forward Hip Posture (L) Flexed (R) Flexed Knee Posture (L) Excess Flexion (R) Excess Flexion PT-OP-K Range of Motion Start: 09/02/18 07:25 Freq: Status: Active Protocol: Document 09/01/18 18:29 ML (Rec: 09/02/18 08:54 ML [email or web address]) Shoulder Goniometric Range of Motion Shoulder Measured in Degrees Right Passive Testing Position Supine Flexion 130 Abduction 125 External Rotation at 90 degrees 76 Abduction Internal Rotation 26 Left Active Shoulder ROM WFL Yes Testing Position Sitting Flexion 132 Abduction 180 External Rotation at 90 degrees 90 Abduction External Rotation at 0 degrees Abduction 67 Internal Rotation Behind Back (text) T7 Right Active Shoulder ROM WFL No Testing Position Sitting Flexion 116 Extension 63 Abduction 124 External Rotation at 90 degrees 78 Abduction External Rotation at 0 degrees Abduction 58 Internal Rotation 5 Internal Rotation Behind Back (text) L1 PT-OP-M Strength Start: 09/02/18 07:25 Freq: Status: Active Protocol: Document 09/01/18 18:29 ML (Rec: 09/02/18 08:54 ML [email or web address]) Shoulder Strength Shoulder Manual Muscle Testing Left Flexion 5 Normal Abduction (C5) 5 Normal External Rotation 5 Normal Internal Rotation 4 Good Right Flexion 4- Good- Abduction (C5) 4 Good External Rotation 5 Normal Internal Rotation 4- Good- PT-OP-Q Treatments Start: 09/02/18 07:25 Freq: Status: Active Protocol: Document 10/18/18 18:01 [facility] (Rec: 10/18/18 18:04 [facility] [email or web address]) Therapeutic Exercises Supine Exercises axial elongation Supine Exercise Name axial elongation w/pillow support Standing Exercises wall posture Standing Exercise Name wall posture w/90/90 ER Side bilateral Comments pillow behind head Manual Therapy Treatment Soft Tissue Mobilization 1 Body Location Ant chest/pecs & ant shoulder Mobilization Type Myofascial Release Rolling Intensity/Depth Moderate Joint Mobilizations T1-3 Joint T1-3 Direction L transverse FM w/cover position R upper thoracic Joint T2-4 Direction FM w/B cover position thoracic\ Joint UPA R w/ER FM T3-6 AC Joint acromian Direction ant FM w/90/90 ER 1 Joint GH Direction post translation PT-OP-R Modalities Start: 10/04/18 18:00 Freq: Status: Active Protocol: Document 10/04/18 17:54 [facility] (Rec: 10/04/18 18:01 [facility] [email or web address]) Hot Pack/Cold Pack Treatment Cold Pack Location R shoulder Patient Position Sidelying Treatment Duration (minutes) 10 PT-OP-T Assessment and Plan Start: 09/02/18 07:25 Freq: Status: Active Protocol: Document 10/18/18 18:01 [facility] (Rec: 10/18/18 18:08 [facility] [email or web address]) Physical Therapy Assessment Goals 3 Impairment neck pain/headaches Short Term Goal (STG) Pt will demonstrate appropriate sleeping position and report that he is no longer waking at night due to headaches. STG Duration 10/02/18 2 Impairment dec strength Short Term Goal (STG) Pt demonstrates independence with HEP. STG Duration 10/02/18 [facility] Goal (LTG) Pt will improve strength to 5/ 5 with all motions in order to be able to lift as needed. LTG Duration 11/01/18 1 Impairment dec ROM Short Term Goal (STG) Pt will be able to achieve 15 degrees IR AROM in order to improve his ability to wash his back. STG Duration 10/02/18 [employer] Goal (LTG) Pt will report greater ease with being able to use his hand to wash his back. LTG Duration 11/01/18 Assessment Summary Assessment Improved posture after mobilizations which improved pt's ability to ER in 90/90 position. He cont to have dec retraction & axial elongation of neck which impairs his ability to activiate appropriately with his R shoulder. Physical Therapy Plan Frequency and Duration Frequency of Treatment 2x/Week Plan of Care Start Date 09/01/18 Plan of Care End Date 11/01/18 Next Visit Focus/Plan Next Note Type Progress Note Next Visit Plan quadruped Habd with wt, progress to scaption also & work in prone prop position for scap stability
--- NOTE | 2018-10-25 17:53 | PT.OTN ---
Current Diagnoses Other specified postprocedural states (10/25/18) Physical Therapy Treatment Note PT-OP-A Visit Information Start: 09/02/18 07:25 Freq: Status: Active Protocol: Document 10/25/18 17:48 LR (Rec: 10/25/18 17:53 [facility] [email or web address]) Out-Patient Physical Therapy Visit Information Visit Information Visit Type Treatment Note Visit Note 30 visits per calender year ( sharing w/another clinic) Visit Start Time 16:00 Visit Stop Time 16:45 Total Visit Minutes 45 Visit Number 6 PT-OP-B Current Condition Start: 09/02/18 07:25 Freq: Status: Active Protocol: Document 09/01/18 18:29 ML (Rec: 09/02/18 08:03 ML [id number]) Current Condition History of Current Condition Onset Date 04/01/18 Current Complaints Dec ROM and strength status post rotator cuff repair History of Current Condition Pt has been recoverying well from his rotator cuff repair but wants to continue to have PT 2x/week in order to regain full ROM and strength. Pt has been going to PT in [place] 2x/week since the surgery 4 months ago, but is now pursuing PT here once a week as he is only able to make his appointment in [place] once a week. 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 Pt also presents with ankylosing spondylitis and states that doctors mentioned that it could have been related to his tear. Pt reports of having no difficulty of work activities, general ADLs, or recreational activities. He states that because of his ROM he is unable to wash his back and would like to improve ROM for general function. Pt says he has done some kayaking and would like to continue to do so. Pt stated no other particular activities or difficulties that finds limitations in because of his current condition of his shoulder. Prior Treatments and Tests PT in [place] Future Testing and Treatments Planned possible MRI for neck if hand sx don't resolve Treatment Goals Patient/Caregiver Goals increase ROM to be able to wash his back and increase strength in order to lift as needed and continue to be able to kayak without further limitations with his shoulder PT-OP-C Subjective Start: 09/02/18 07:25 Freq: Status: Active Protocol: Document 10/25/18 17:48 LR (Rec: 10/25/18 17:53 [facility] [email or web address]) OP-PT Subjective Patient Comments Patient Comments Pt reports other PT is transitioning to full body work to work on affects of PT-OP-F Manual Assessment Start: 09/02/18 07:25 Freq: Status: Active Protocol: Document 09/01/18 18:29 ML (Rec: 09/02/18 08:03 ML [id number]) Manual Assessments Soft Tissue Assessment Soft Tissue Mobility Assessment cervical paraspinal tenderness and tightness, scalene tightness, pec tightness all bilaterally Joint Mobility Assessment Joint Mobility Assessment posterior capsular restriction , first rib elevated PT-OP-J Posture/Palpation/Skin Start: 09/02/18 07:25 Freq: Status: Active Protocol: Document 09/01/18 18:29 ML (Rec: 09/02/18 08:54 ML [email or web address]) Posture Evaluation Position Standing Evaluation View Lateral Head/C-Spine Posture Forward Head T-Spine Posture Increased Kyphosis Shoulder Posture (L) Rounded (R) Rounded (L) Forward (R) Forward Hip Posture (L) Flexed (R) Flexed Knee Posture (L) Excess Flexion (R) Excess Flexion PT-OP-K Range of Motion Start: 09/02/18 07:25 Freq: Status: Active Protocol: Document 09/01/18 18:29 ML (Rec: 09/02/18 08:54 ML [email or web address]) Shoulder Goniometric Range of Motion Shoulder Measured in Degrees Right Passive Testing Position Supine Flexion 130 Abduction 125 External Rotation at 90 degrees 76 Abduction Internal Rotation 26 Left Active Shoulder ROM WFL Yes Testing Position Sitting Flexion 132 Abduction 180 External Rotation at 90 degrees 90 Abduction External Rotation at 0 degrees Abduction 67 Internal Rotation Behind Back (text) T7 Right Active Shoulder ROM WFL No Testing Position Sitting Flexion 116 Extension 63 Abduction 124 External Rotation at 90 degrees 78 Abduction External Rotation at 0 degrees Abduction 58 Internal Rotation 5 Internal Rotation Behind Back (text) L1 PT-OP-M Strength Start: 09/02/18 07:25 Freq: Status: Active Protocol: Document 09/01/18 18:29 ML (Rec: 09/02/18 08:54 ML [email or web address]) Shoulder Strength Shoulder Manual Muscle Testing Left Flexion 5 Normal Abduction (C5) 5 Normal External Rotation 5 Normal Internal Rotation 4 Good Right Flexion 4- Good- Abduction (C5) 4 Good External Rotation 5 Normal Internal Rotation 4- Good- PT-OP-Q Treatments Start: 09/02/18 07:25 Freq: Status: Active Protocol: Document 10/25/18 17:48 [facility] (Rec: 10/25/18 17:53 [facility] [email or web address]) Therapeutic Exercises Standing Exercises wall posture Standing Exercise Name wall posture w/90/90 ER Side bilateral Comments pillow behind head Other Exercises scaption Other Exercise Name quadruped Equipment Used 0# progressed to 2# Reps/Minutes 20 Habd Other Exercise Name quadruped alt UEs Equipment Used 0# progressed to 2# Reps/Minutes 2x15 Manual Therapy Treatment Soft Tissue Mobilization scapular borders Body Location medial and lat with protraction retraction Body Position Sidelying Comments FM Joint Mobilizations scapulothoracic Joint scapula Direction tilts sup & inf, med, lat, inf /sup AC Joint acromian Direction FM with protraction PT-OP-R Modalities Start: 10/04/18 18:00 Freq: Status: Active Protocol: Document 10/04/18 17:54 [facility] (Rec: 10/04/18 18:01 [facility] [email or web address]) Hot Pack/Cold Pack Treatment Cold Pack Location R shoulder Patient Position Sidelying Treatment Duration (minutes) 10 PT-OP-T Assessment and Plan Start: 09/02/18 07:25 Freq: Status: Active Protocol: Document 10/25/18 17:48 [facility] (Rec: 10/25/18 17:53 [facility] [email or web address]) Physical Therapy Assessment Goals 3 Impairment neck pain/headaches Short Term Goal (STG) Pt will demonstrate appropriate sleeping position and report that he is no longer waking at night due to headaches. STG Duration 10/02/18 2 Impairment dec strength Short Term Goal (STG) Pt demonstrates independence with HEP. STG Duration 10/02/18 Alf Goal (LTG) Pt will improve strength to 5/ 5 with all motions in order to be able to lift as needed. LTG Duration 11/01/18 1 Impairment dec ROM Short Term Goal (STG) Pt will be able to achieve 15 degrees IR AROM in order to improve his ability to wash his back. STG Duration 10/02/18 Alf Goal (LTG) Pt will report greater ease with being able to use his hand to wash his back. LTG Duration 11/01/18 Assessment Summary Assessment Improved posture & improved ability to perform HAbd exercise with wt with dec winging after soft tissue mobilizations & joint mobs. Pt also improved with ER ROM with dec pain. Physical Therapy Plan Frequency and Duration Frequency of Treatment 2x/Week Plan of Care Start Date 09/01/18 Plan of Care End Date 11/01/18 Next Visit Focus/Plan Next Note Type Progress Note Next Visit Plan Prone prop for scap position; Scapular stability exercises
--- NOTE | 2018-11-01 18:07 | PT.OTN ---
Current Diagnoses Other specified postprocedural states (11/01/18) Physical Therapy Treatment Note PT-OP-A Visit Information Start: 09/02/18 07:25 Freq: Status: Active Protocol: Document 11/01/18 18:02 [facility] (Rec: 11/01/18 18:07 [facility] [email or web address]) Out-Patient Physical Therapy Visit Information Visit Information Visit Type Treatment Note Visit Note 30 visits per calender year ( sharing w/another clinic) Visit Start Time 16:00 Visit Stop Time 16:45 Total Visit Minutes 45 Visit Number 7 PT-OP-B Current Condition Start: 09/02/18 07:25 Freq: Status: Active Protocol: Document 09/01/18 18:29 ML (Rec: 09/02/18 08:03 ML [id number]) Current Condition History of Current Condition Onset Date 04/01/18 Current Complaints Dec ROM and strength status post rotator cuff repair History of Current Condition Pt has been recoverying well from his rotator cuff repair but wants to continue to have PT 2x/week in order to regain full ROM and strength. Pt has been going to PT in [place] 2x/week since the surgery 4 months ago, but is now pursuing PT here once a week as he is only able to make his appointment in [place] once a week. 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 Pt also presents with ankylosing spondylitis and states that doctors mentioned that it could have been related to his tear. Pt reports of having no difficulty of work activities, general ADLs, or recreational activities. He states that because of his ROM he is unable to wash his back and would like to improve ROM for general function. Pt says he has done some kayaking and would like to continue to do so. Pt stated no other particular activities or difficulties that finds limitations in because of his current condition of his shoulder. Prior Treatments and Tests PT in [place] Future Testing and Treatments Planned possible MRI for neck if hand sx don't resolve Treatment Goals Patient/Caregiver Goals increase ROM to be able to wash his back and increase strength in order to lift as needed and continue to be able to kayak without further limitations with his shoulder PT-OP-C Subjective Start: 09/02/18 07:25 Freq: Status: Active Protocol: Document 11/01/18 18:02 [facility] (Rec: 11/01/18 18:07 [facility] [email or web address]) OP-PT Subjective Patient Comments Patient Comments Pt reports he woke up this AM with pain in R post shoulder blade. Reports stretching and using hot tub to help. PT-OP-F Manual Assessment Start: 09/02/18 07:25 Freq: Status: Active Protocol: Document 09/01/18 18:29 ML (Rec: 09/02/18 08:03 ML [id number]) Manual Assessments Soft Tissue Assessment Soft Tissue Mobility Assessment cervical paraspinal tenderness and tightness, scalene tightness, pec tightness all bilaterally Joint Mobility Assessment Joint Mobility Assessment posterior capsular restriction , first rib elevated PT-OP-J Posture/Palpation/Skin Start: 09/02/18 07:25 Freq: Status: Active Protocol: Document 09/01/18 18:29 ML (Rec: 09/02/18 08:54 ML [email or web address]) Posture Evaluation Position Standing Evaluation View Lateral Head/C-Spine Posture Forward Head T-Spine Posture Increased Kyphosis Shoulder Posture (L) Rounded (R) Rounded (L) Forward (R) Forward Hip Posture (L) Flexed (R) Flexed Knee Posture (L) Excess Flexion (R) Excess Flexion PT-OP-K Range of Motion Start: 09/02/18 07:25 Freq: Status: Active Protocol: Document 09/01/18 18:29 ML (Rec: 09/02/18 08:54 ML [email or web address]) Shoulder Goniometric Range of Motion Shoulder Measured in Degrees Right Passive Testing Position Supine Flexion 130 Abduction 125 External Rotation at 90 degrees 76 Abduction Internal Rotation 26 Left Active Shoulder ROM WFL Yes Testing Position Sitting Flexion 132 Abduction 180 External Rotation at 90 degrees 90 Abduction External Rotation at 0 degrees Abduction 67 Internal Rotation Behind Back (text) T7 Right Active Shoulder ROM WFL No Testing Position Sitting Flexion 116 Extension 63 Abduction 124 External Rotation at 90 degrees 78 Abduction External Rotation at 0 degrees Abduction 58 Internal Rotation 5 Internal Rotation Behind Back (text) L1 PT-OP-M Strength Start: 09/02/18 07:25 Freq: Status: Active Protocol: Document 09/01/18 18:29 ML (Rec: 09/02/18 08:54 ML [email or web address]) Shoulder Strength Shoulder Manual Muscle Testing Left Flexion 5 Normal Abduction (C5) 5 Normal External Rotation 5 Normal Internal Rotation 4 Good Right Flexion 4- Good- Abduction (C5) 4 Good External Rotation 5 Normal Internal Rotation 4- Good- PT-OP-Q Treatments Start: 09/02/18 07:25 Freq: Status: Active Protocol: Document 11/01/18 18:02 [facility] (Rec: 11/01/18 18:07 [facility] [email or web address]) Therapeutic Exercises Supine Exercises axial elongation Supine Exercise Name axial elongation w/pillow support Manual Therapy Treatment Soft Tissue Mobilization post C-T junction Body Location B Mobilization Type Myofascial Release Intensity/Depth Superficial Comments w/chin tucks scapular borders Body Location medial and lat with protraction retraction Body Position Sidelying Comments FM 2 Body Location scalenes Mobilization Type Rolling 1 Body Location Ant chest/pecs & ant shoulder Mobilization Type Myofascial Release Rolling Intensity/Depth Moderate Joint Mobilizations 1 Joint GH Direction post translation PT-OP-R Modalities Start: 10/04/18 18:00 Freq: Status: Active Protocol: Document 10/04/18 17:54 [facility] (Rec: 10/04/18 18:01 [facility] [email or web address]) Hot Pack/Cold Pack Treatment Cold Pack Location R shoulder Patient Position Sidelying Treatment Duration (minutes) 10 PT-OP-T Assessment and Plan Start: 09/02/18 07:25 Freq: Status: Active Protocol: Document 11/01/18 18:02 [facility] (Rec: 11/01/18 18:07 [facility] [email or web address]) Physical Therapy Assessment Goals 3 Impairment neck pain/headaches Short Term Goal (STG) Pt will demonstrate appropriate sleeping position and report that he is no longer waking at night due to headaches. STG Duration 11/13/18-improving c/o neck pain at end of day 2 Impairment dec strength Short Term Goal (STG) Pt demonstrates independence with HEP. STG Duration achieved Penitentiary Goal (LTG) Pt will improve strength to 5/ 5 with all motions in order to be able to lift as needed. LTG Duration 12/02/1744-pribetcdx-vcg end range strength 1 Impairment dec ROM Short Term Goal (STG) Pt will be able to achieve 15 degrees IR AROM in order to improve his ability to wash his back. STG Duration achieved Penitentiary Goal (LTG) Pt will report greater ease with being able to use his hand to wash his back. LTG Duration achieved Assessment Summary Assessment Improved pain after manual treatment and improved axial elongation stability after scalene & pec mobilizations & post glide of humerus. Physical Therapy Plan Frequency and Duration Frequency of Treatment 1-2x/Week Plan of Care Start Date 11/01/18 Plan of Care End Date 12/02/18 Therapeutic Interventions Therapeutic Interventions Balance Training Gait Training Home Exercise Program Joint Mobilizations Manual Therapy Neuromuscular Re-education Self-Care/Home Management Soft Tissue Mobilization Taping Therapeutic Activities Therapeutic Exercises Modalities Cold Pack/Ice Massage Electric Stimulation Hot Packs Ultrasound Next Visit Focus/Plan Next Note Type Treatment Note Next Visit Plan Cont to work on postural stability
--- NOTE | 2018-11-01 18:08 | PT.OPPOC ---
Current Diagnoses Other specified postprocedural states (11/01/18) Provider Visit Care Team Role Provider Type Faheem Dotson MD Attending Provider Non-Staff Specialty: Orthopedics Address: [address] [place], [place] [id number], [address] Email: Plan Of Care PT-OP-T Assessment and Plan Start: 09/02/18 07:25 Freq: Status: Active Protocol: Document 11/01/18 18:02 [facility] (Rec: 11/01/18 18:07 [facility] [email or web address]) Physical Therapy Assessment Goals 3 Impairment neck pain/headaches Short Term Goal (STG) Pt will demonstrate appropriate sleeping position and report that he is no longer waking at night due to headaches. STG Duration 11/13/18-improving c/o neck pain at end of day 2 Impairment dec strength Short Term Goal (STG) Pt demonstrates independence with HEP. STG Duration achieved [employer] Goal (LTG) Pt will improve strength to 5/ 5 with all motions in order to be able to lift as needed. LTG Duration 12/02/1741-yjlyesssn-nif end range strength 1 Impairment dec ROM Short Term Goal (STG) Pt will be able to achieve 15 degrees IR AROM in order to improve his ability to wash his back. STG Duration achieved Penitentiary Goal (LTG) Pt will report greater ease with being able to use his hand to wash his back. LTG Duration achieved Assessment Summary Assessment Improved pain after manual treatment and improved axial elongation stability after scalene & pec mobilizations & post glide of humerus. Physical Therapy Plan Frequency and Duration Frequency of Treatment 1-2x/Week Plan of Care Start Date 11/01/18 Plan of Care End Date 12/02/18 Therapeutic Interventions Therapeutic Interventions Balance Training Gait Training Home Exercise Program Joint Mobilizations Manual Therapy Neuromuscular Re-education Self-Care/Home Management Soft Tissue Mobilization Taping Therapeutic Activities Therapeutic Exercises Modalities Cold Pack/Ice Massage Electric Stimulation Hot Packs Ultrasound Next Visit Focus/Plan Next Note Type Treatment Note Next Visit Plan Cont to work on postural stability Plan of Care Dates Plan of Care Start Date 11/01/18 Plan of Care End Date 12/02/18 Please Sign and Return: I have reviewed this Plan of Care and certify that the skilled therapy services above are required to meet the patient?s needs. Physician Signature Date Printed Name and Credentials Clinical Instructor Signature Printed Name and Credentials
--- NOTE | 2018-11-08 16:41 | PT.OTN ---
Current Diagnoses Other specified postprocedural states (11/08/18) Physical Therapy Treatment Note PT-OP-A Visit Information Start: 09/02/18 07:25 Freq: Status: Active Protocol: Document 11/08/18 16:34 [facility] (Rec: 11/09/18 09:40 [facility] [id number]) Out-Patient Physical Therapy Visit Information Visit Information Visit Type Treatment Note Visit Note 30 visits per calender year ( sharing w/another clinic) Visit Start Time 16:00 Visit Stop Time 16:55 Total Visit Minutes 55 Visit Number 8 PT-OP-B Current Condition Start: 09/02/18 07:25 Freq: Status: Active Protocol: Document 09/01/18 18:29 ML (Rec: 09/02/18 08:03 ML [id number]) Current Condition History of Current Condition Onset Date 04/01/18 Current Complaints Dec ROM and strength status post rotator cuff repair History of Current Condition Pt has been recoverying well from his rotator cuff repair but wants to continue to have PT 2x/week in order to regain full ROM and strength. Pt has been going to PT in [place] 2x/week since the surgery 4 months ago, but is now pursuing PT here once a week as he is only able to make his appointment in [place] once a week. 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 Pt also presents with ankylosing spondylitis and states that doctors mentioned that it could have been related to his tear. Pt reports of having no difficulty of work activities, general ADLs, or recreational activities. He states that because of his ROM he is unable to wash his back and would like to improve ROM for general function. Pt says he has done some kayaking and would like to continue to do so. Pt stated no other particular activities or difficulties that finds limitations in because of his current condition of his shoulder. Prior Treatments and Tests PT in [place] Future Testing and Treatments Planned possible MRI for neck if hand sx don't resolve Treatment Goals Patient/Caregiver Goals increase ROM to be able to wash his back and increase strength in order to lift as needed and continue to be able to kayak without further limitations with his shoulder PT-OP-C Subjective Start: 09/02/18 07:25 Freq: Status: Active Protocol: Document 11/08/18 16:34 [facility] (Rec: 11/09/18 09:41 [facility] [id number]) OP-PT Subjective Patient Comments Patient Comments pt reports difficulty opening and closing doors today d/t ant shoulder pain. Pt went to ER for dizziness last thursday. They determined BPPV but pt went to PT later that day and it was not BPPV. Pt has not had the lightheaded /dizzy feeling since. PT-OP-F Manual Assessment Start: 09/02/18 07:25 Freq: Status: Active Protocol: Document 09/01/18 18:29 ML (Rec: 09/02/18 08:03 ML [id number]) Manual Assessments Soft Tissue Assessment Soft Tissue Mobility Assessment cervical paraspinal tenderness and tightness, scalene tightness, pec tightness all bilaterally Joint Mobility Assessment Joint Mobility Assessment posterior capsular restriction , first rib elevated PT-OP-J Posture/Palpation/Skin Start: 09/02/18 07:25 Freq: Status: Active Protocol: Document 09/01/18 18:29 ML (Rec: 09/02/18 08:54 ML [email or web address]) Posture Evaluation Position Standing Evaluation View Lateral Head/C-Spine Posture Forward Head T-Spine Posture Increased Kyphosis Shoulder Posture (L) Rounded (R) Rounded (L) Forward (R) Forward Hip Posture (L) Flexed (R) Flexed Knee Posture (L) Excess Flexion (R) Excess Flexion PT-OP-K Range of Motion Start: 09/02/18 07:25 Freq: Status: Active Protocol: Document 09/01/18 18:29 ML (Rec: 09/02/18 08:54 ML [email or web address]) Shoulder Goniometric Range of Motion Shoulder Measured in Degrees Right Passive Testing Position Supine Flexion 130 Abduction 125 External Rotation at 90 degrees 76 Abduction Internal Rotation 26 Left Active Shoulder ROM WFL Yes Testing Position Sitting Flexion 132 Abduction 180 External Rotation at 90 degrees 90 Abduction External Rotation at 0 degrees Abduction 67 Internal Rotation Behind Back (text) T7 Right Active Shoulder ROM WFL No Testing Position Sitting Flexion 116 Extension 63 Abduction 124 External Rotation at 90 degrees 78 Abduction External Rotation at 0 degrees Abduction 58 Internal Rotation 5 Internal Rotation Behind Back (text) L1 PT-OP-M Strength Start: 09/02/18 07:25 Freq: Status: Active Protocol: Document 09/01/18 18:29 ML (Rec: 09/02/18 08:54 ML [email or web address]) Shoulder Strength Shoulder Manual Muscle Testing Left Flexion 5 Normal Abduction (C5) 5 Normal External Rotation 5 Normal Internal Rotation 4 Good Right Flexion 4- Good- Abduction (C5) 4 Good External Rotation 5 Normal Internal Rotation 4- Good- PT-OP-Q Treatments Start: 09/02/18 07:25 Freq: Status: Active Protocol: Document 11/08/18 16:34 [facility] (Rec: 11/09/18 09:40 [facility] [email or web address]) Therapeutic Exercises Standing Exercises wall posture Standing Exercise Name wall posture w/90/90 ER Side bilateral Comments pillow behind head Manual Therapy Treatment Soft Tissue Mobilization scapular borders Body Location medial and lat Body Position Sidelying Comments FM w/overhead movement 1 Body Location Ant chest/pecs & ant shoulder Mobilization Type Myofascial Release Rolling Intensity/Depth Moderate Joint Mobilizations 1 Joint GH Direction post translation & glide & inf glide & distraction FM Self-Care/Home Management Treatment Activities Self-Care/Home Management Activities edu on exercise continuation & importance of cont to work on range & strength; quick verbal review of exercises PT-OP-R Modalities Start: 10/04/18 18:00 Freq: Status: Active Protocol: Document 10/04/18 17:54 [facility] (Rec: 10/04/18 18:01 [facility] [email or web address]) Hot Pack/Cold Pack Treatment Cold Pack Location R shoulder Patient Position Sidelying Treatment Duration (minutes) 10 PT-OP-T Assessment and Plan Start: 09/02/18 07:25 Freq: Status: Active Protocol: Document 11/08/18 16:34 [facility] (Rec: 11/09/18 09:40 [facility] [email or web address]) Physical Therapy Assessment Goals 3 Impairment neck pain/headaches Short Term Goal (STG) Pt will demonstrate appropriate sleeping position and report that he is no longer waking at night due to headaches. STG Duration achieved 2 Impairment dec strength Short Term Goal (STG) Pt demonstrates independence with HEP. STG Duration achieved [employer] Goal (LTG) Pt will improve strength to 5/ 5 with all motions in order to be able to lift as needed. LTG Duration 12/02/1716-[id number] end range strength 1 Impairment dec ROM Short Term Goal (STG) Pt will be able to achieve 15 degrees IR AROM in order to improve his ability to wash his back. STG Duration achieved Penitentiary Goal (LTG) Pt will report greater ease with being able to use his hand to wash his back. LTG Duration achieved Assessment Summary Assessment With further manual therapy this session, pt was able to have no pain opening/closing a door as he did earlier. Pt is doing well with range and is very close to his opposite side. Pt has follow ups with MD over next month and pt may seek PT for overall mobility and pain d/t . Physical Therapy Plan Discharge Physical Therapy Discharge Reasons Goals Met Discharge Comments Pt to cont with HEP to cont to work on end range strength and ROM
--- NOTE | 2018-11-08 17:42 | PT.OPDS ---
Current Diagnoses Other specified postprocedural states (11/08/18) Provider Visit Care Team Role Provider Type Faheem Dotson MD Attending Provider Non-Staff Specialty: Orthopedics Address: [facility] [address] [address], [place], [address] Email: Visit Number Visit Number 8 Discharge Summary PT-OP-B Current Condition Start: 09/02/18 07:25 Freq: Status: Active Protocol: Document 09/01/18 18:29 ML (Rec: 09/02/18 08:03 ML [id number]) Current Condition History of Current Condition Onset Date 04/01/18 Current Complaints Dec ROM and strength status post rotator cuff repair History of Current Condition Pt has been recoverying well from his rotator cuff repair but wants to continue to have PT 2x/week in order to regain full ROM and strength. Pt has been going to PT in [place] 2x/week since the surgery 4 months ago, but is now pursuing PT here once a week as he is only able to make his appointment in [place] once a week. 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 Pt also presents with ankylosing spondylitis and states that doctors mentioned that it could have been related to his tear. Pt reports of having no difficulty of work activities, general ADLs, or recreational activities. He states that because of his ROM he is unable to wash his back and would like to improve ROM for general function. Pt says he has done some kayaking and would like to continue to do so. Pt stated no other particular activities or difficulties that finds limitations in because of his current condition of his shoulder. Prior Treatments and Tests PT in [place] Future Testing and Treatments Planned possible MRI for neck if hand sx don't resolve Treatment Goals Patient/Caregiver Goals increase ROM to be able to wash his back and increase strength in order to lift as needed and continue to be able to kayak without further limitations with his shoulder PT-OP-C Subjective Start: 09/02/18 07:25 Freq: Status: Active Protocol: Document 11/08/18 16:34 [facility] (Rec: 11/09/18 09:41 [facility] [email or web address]) OP-PT Subjective Patient Comments Patient Comments pt reports difficulty opening and closing doors today d/t ant shoulder pain. Pt went to ER for dizziness last thursday. They determined BPPV but pt went to PT later that day and it was not BPPV. Pt has not had the lightheaded /dizzy feeling since. PT-OP-F Manual Assessment Start: 09/02/18 07:25 Freq: Status: Active Protocol: Document 09/01/18 18:29 ML (Rec: 09/02/18 08:03 ML [id number]) Manual Assessments Soft Tissue Assessment Soft Tissue Mobility Assessment cervical paraspinal tenderness and tightness, scalene tightness, pec tightness all bilaterally Joint Mobility Assessment Joint Mobility Assessment posterior capsular restriction , first rib elevated PT-OP-J Posture/Palpation/Skin Start: 09/02/18 07:25 Freq: Status: Active Protocol: Document 09/01/18 18:29 ML (Rec: 09/02/18 08:54 ML [email or web address]) Posture Evaluation Position Standing Evaluation View Lateral Head/C-Spine Posture Forward Head T-Spine Posture Increased Kyphosis Shoulder Posture (L) Rounded (R) Rounded (L) Forward (R) Forward Hip Posture (L) Flexed (R) Flexed Knee Posture (L) Excess Flexion (R) Excess Flexion PT-OP-K Range of Motion Start: 09/02/18 07:25 Freq: Status: Active Protocol: Document 09/01/18 18:29 ML (Rec: 09/02/18 08:54 ML [email or web address]) Shoulder Goniometric Range of Motion Shoulder Measured in Degrees Right Passive Testing Position Supine Flexion 130 Abduction 125 External Rotation at 90 degrees 76 Abduction Internal Rotation 26 Left Active Shoulder ROM WFL Yes Testing Position Sitting Flexion 132 Abduction 180 External Rotation at 90 degrees 90 Abduction External Rotation at 0 degrees Abduction 67 Internal Rotation Behind Back (text) T7 Right Active Shoulder ROM WFL No Testing Position Sitting Flexion 116 Extension 63 Abduction 124 External Rotation at 90 degrees 78 Abduction External Rotation at 0 degrees Abduction 58 Internal Rotation 5 Internal Rotation Behind Back (text) L1 PT-OP-M Strength Start: 09/02/18 07:25 Freq: Status: Active Protocol: Document 09/01/18 18:29 ML (Rec: 09/02/18 08:54 ML [email or web address]) Shoulder Strength Shoulder Manual Muscle Testing Left Flexion 5 Normal Abduction (C5) 5 Normal External Rotation 5 Normal Internal Rotation 4 Good Right Flexion 4- Good- Abduction (C5) 4 Good External Rotation 5 Normal Internal Rotation 4- Good- PT-OP-T Assessment and Plan Start: 09/02/18 07:25 Freq: Status: Active Protocol: Document 11/08/18 16:34 [facility] (Rec: 11/09/18 09:40 [facility] [email or web address]) Physical Therapy Assessment Goals 3 Impairment neck pain/headaches Short Term Goal (STG) Pt will demonstrate appropriate sleeping position and report that he is no longer waking at night due to headaches. STG Duration achieved 2 Impairment dec strength Short Term Goal (STG) Pt demonstrates independence with HEP. STG Duration achieved Jail Goal (LTG) Pt will improve strength to 5/ 5 with all motions in order to be able to lift as needed. LTG Duration 12/02/1748-[id number] end range strength 1 Impairment dec ROM Short Term Goal (STG) Pt will be able to achieve 15 degrees IR AROM in order to improve his ability to wash his back. STG Duration achieved Funeral Home Assistant Goal (LTG) Pt will report greater ease with being able to use his hand to wash his back. LTG Duration achieved Assessment Summary Assessment With further manual therapy this session, pt was able to have no pain opening/closing a door as he did earlier. Pt is doing well with range and is very close to his opposite side. Pt has follow ups with MD over next month and pt may seek PT for overall mobility and pain d/t . Physical Therapy Plan Discharge Physical Therapy Discharge Reasons Goals Met Discharge Comments Pt to cont with HEP to cont to work on end range strength and ROM
== END 2018-12-02 13:48 ==
LOC: PHYS 16:00
PROVIDERS: Visit Provider Orthopaedic Surgery
DX: Z98.890 Other specified postprocedural states (principal)
CPT/HCPCS: 97110; 97140; 97161; 97535